=== PATIENT | male | born 1980 | race Caucasian/White ===

== ENCOUNTER → 2017-02-03 | Outpatient (CLI) | payer BC ==
[~2017-02-03] MED LIST: HYDROCODONE BIT1 T11 PO; KEFLEX500 MG PO; MOTRIN800 MG PO
== END | disposition home or self-care (01) ==
LOC: RAD 16:30
DX: M25.512 Pain in left shoulder (principal); M79.602 Pain in left arm; R20.2 Paresthesia of skin

== ENCOUNTER 2021-12-04 21:03 | Emergency (ER) | payer BC ==
[~2021-12-04] VITALS: Ht 175.2 cm; Wt 99.8 kg
[2021-12-04] MEDS ORDERED: ZOFRAN4 MG PO (21:57)
== END 2021-12-04 22:40 | disposition home or self-care (01) ==
LOC: ED 21:03
DX: S92.902A Unspecified fracture of left foot, initial encounter for closed fracture (principal); W22.8XXA Striking against or struck by other objects, initial encounter; Y93.89 Activity, other specified; Y92.89 Other specified places as the place of occurrence of the external cause; Y99.8 Other external cause status